=== PATIENT | male | born 1985 | race Caucasian/White ===

== ENCOUNTER 2021-02-13 09:53 | Emergency (ER) | payer BC, SELFPAY ==
[2021-02-13 10:12] VITALS: BP 150/93; PULSE 63; RESP 16; TEMP 36.1; O2SAT 99
--- NOTE | 2021-02-13 10:40 | ED_ITS ---
HPI - Skin/Abscess/Foreign Bdy General Chief complaint: Skin/Abscess/Foreign Body Stated complaint: Tick Bite Source: patient and RN notes reviewed Limitations: no limitations History of Present Illness HPI narrative: The patient, previously mostly healthy, presents with infected insect bite. Patient states a week ago, he had a witnessed tick bite, that was small, felt to be unengorged that he removed over the weekend. He now complains of surrounding mild redness and swelling, without a halo sign. Symptoms are mild, he reports penicillin allergy with rash. No fever, abscess/induration, streaking Related Data Allergies Allergy/AdvReac Type Severity Reaction Status Date / Time amoxicillin [From Augmentin] Allergy Hives Verified 02/13/21 10:17 clavulanic acid Allergy Hives Verified 02/13/21 10:17 [From Augmentin] Review of Systems Review of Systems: Narrative: The patient has been informed that they may have pre-hypertension or Hypertension based on a BP reading in the department. I recommend that the patient call the primary care provider listed on their discharge instructions or a physician of their choice this week to arrange follow up for further evaluation of possible pre-hypertension or Hypertension General/Constitutional: No weight loss,fever Eyes: N0: Redness,discharge Ears/Nose/Throat: No: Epistaxis,ear discharge Respiratory: Denies: Hemoptysis Gastrointestinal: No Vomiting, Bleeding-rectal Skin: No Lumps, eruption Neurologic: No Focal Weakness,Sz Hematologic: Denies: Petechiae/Purpura Psychiatric: No: Suicida ideationl All Other Systems: Reviewed and Negative PMFSH Comments At time of signature, agree with nursing past medical, surgical, social and family history. There is no relevant family history pertinent to the presenting complaint Exam Narrative: Exam Narrative: General Appearance: Well nourished, normocephalic,, Conjunctiva clear Mouth/Throat: Normal appearing Neck Exam: Supple Respiratory: Airway patent, No respiratory distress Musculoskeletal: Moves all extremities, Non tender Skin: Warm, Dry small 6cm, discrete macular papular skin eruption of right axillary arm Neurological: A&O x3 Normal mood, Normal affect Course Vital Signs Vital signs: Vital Signs Temperature 96.9 F L 02/13/21 10:12 Pulse Rate 63 02/13/21 10:12 Respiratory Rate 16 02/13/21 10:12 Blood Pressure 150/93 H 02/13/21 10:12 Pulse Oximetry 99 02/13/21 10:12 Temperature 96.9 F L 02/13/21 10:12 Pulse Rate 63 02/13/21 10:12 Respiratory Rate 16 02/13/21 10:12 Blood Pressure 150/93 H 02/13/21 10:12 Pulse Oximetry 99 02/13/21 10:12 Discharge Plan Discharge Clinical Impression: Infected bite wound Patient Disposition: Home, Self-Care Condition: Stable Instructions: Cellulitis (ED), Tick Bite (ED) Additional Instructions: Return if worsens to hospital Prescriptions: New cephalexin 500 mg capsule 1,000 mg PO Q12H 7 Days Qty: 28 RF: 0 doxycycline hyclate 100 mg capsule 100 mg PO Q12H 14 Days Qty: 28 RF: 0 Follow-up/Referrals: PHYSICIAN,SPECIAL EDUCATION DIRECTOR [Primary Care Provider] -
== END 2021-02-13 10:46 | disposition home or self-care (01) ==
PROVIDERS: Emergency Provider Emergency Medicine
DX: L08.9 Local infection of the skin and subcutaneous tissue, unspecified (principal); S40.861A Insect bite (nonvenomous) of right upper arm, initial encounter; W57.XXXA Bitten or stung by nonvenomous insect and other nonvenomous arthropods, initial encounter
CPT/HCPCS: 99203; G0463